=== PATIENT | male | born 1940 | race Caucasian/White ===

== ENCOUNTER 2020-10-22 11:11 | Observation (INO) | payer MEDICARE ==
[2020-10-22] MEDS ORDERED: KETOROLAC 15 MG/ML 1 ML VIAL IVP STA (11:39)
[2020-10-22] MEDS ORDERED: HYDROmorphone 0.5 MG/0.5 ML SYRINGE IVP STA ×2 (11:39→13:33)
--- NOTE | 2020-10-22 11:53 | ED ---
General Adult HPI - General Chief complaint: Extremity Problem,Nontraumatic Stated complaint: knee pain, trouble walking Time Seen by Provider: 10/22/20 11:15 Source: patient, RN notes reviewed, old records reviewed Mode of arrival: ambulatory Limitations: no limitations - History of Present Illness Initial comments: This is a 80-year-old male who presents emergency Department complaining of 3 week history of left knee pain. Patient states started 3 weeks. Progressively worse and yesterday the pain got unbearable to the point where it's difficult to even stand on. Patient states he has a torn meniscus in that knee. Patient denies any recent injury that he can remember. Patient states he has noticed a little more swelling suprapatellar area. Patient denies any ankle pain patient denies any hip pain patient denies any fever chills. Patient states movement definitely makes it worse. - Related Data Home Medications Medication Instructions Recorded Confirmed Acetaminophen [Tylenol] 500 mg PO Q4-6H PRN 10/22/20 10/22/20 Atorvastatin Calcium [Lipitor] 40 mg PO HS 10/22/20 10/22/20 Cholecalciferol [Vitamin D3 (25 50 mcg PO HS 10/22/20 10/22/20 Mcg = 1000 Iu)] Cyanocobalamin (Vitamin B-12) 1,000 mcg PO HS 10/22/20 10/22/20 [Vitamin B-12] Glucosam/Jabari-Msm1/C/Juan/Bosw 1 tab PO HS 10/22/20 10/22/20 [Glucosamine-Chondroitin Tablet] Metoprolol Succinate (ER) [Toprol 50 mg PO HS 10/22/20 10/22/20 XL] Nitroglycerin Sl Tabs [Nitrostat] 0.4 mg SUBLINGUAL Q5M PRN 10/22/20 10/22/20 ramipriL [Altace] 5 mg PO HS 10/22/20 10/22/20 sitaGLIPtin [Januvia] 100 mg PO HS 10/22/20 10/22/20 Allergies Allergy/AdvReac Type Severity Reaction Status Date / Time No Known Allergies Allergy Verified 10/22/20 13:07 Review of Systems ROS Statement: Those systems with pertinent positive or pertinent negative responses have been documented in the HPI. ROS Other: All systems not noted in ROS Statement are negative. Past Medical History Past Medical History: Diabetes Mellitus, Hyperlipidemia, Hypertension History of Any Multi-Drug Resistant Organisms: None Reported Past Surgical History: Cholecystectomy, Heart Catheterization With Stent, Orthopedic Surgery Past Psychological History: No Psychological Hx Reported Smoking Status: Never smoker Past Alcohol Use History: None Reported Past Drug Use History: None Reported General Exam - General Exam Comments Initial Comments: GENERAL Patient is well-developed and well-nourished. Patient is in mild distress. EYES Patient's pupils are equal and round. Extraocular motion is intact SKIN Unremarkable NEURO The patient is alert and oriented 3 PYSCH Patient has normal interpersonal interactions. MUSCULOSKELETAL Patient has a suprapatellar effusion and tenderness with flexion or full extension Limitations: no limitations Course Vital Signs 10/22/20 10/22/20 11:22 13:24 Temperature 98 F Pulse Rate 60 51 L Respiratory 16 18 Rate Blood Pressure 132/71 100/59 O2 Sat by Pulse 99 97 Oximetry Medical Decision Making - Medical Decision Making Left knee x-ray showed a moderate effusion. Patient was given pain meds mu ltiple times was unable to bear any weight. Patient was unable to place a knee immobilizer on because of the pain. I spoke with Dr. Purdy he agreed to admit the patient admitted the patient wrote admitting orders. - Lab Data Result diagrams: 10/22/20 12:17 10/22/20 12:17 Lab Results 10/22/20 10/22/20 Range/Units 12:17 12:17 WBC 6.8 (3.8-10.6) k/uL RBC 4.57 (4.30-5.90) m/uL Hgb 13.9 (13.0-17.5) gm/dL Hct 39.8 (39.0-53.0) % MCV 87.0 (80.0-100.0) fL MCH 30.3 (25.0-35.0) pg MCHC 34.9 (31.0-37.0) g/dL RDW 12.3 (11.5-15.5) % Plt Count 244 (150-450) k/uL MPV 7.1 Neutrophils % 70 % Lymphocytes % 21 % Monocytes % 5 % Eosinophils % 1 % Basophils % 1 % Neutrophils # 4.8 (1.3-7.7) k/uL Lymphocytes # 1.5 (1.0-4.8) k/uL Monocytes # 0.4 (0-1.0) k/uL Eosinophils # 0.1 (0-0.7) k/uL Basophils # 0.0 (0-0.2) k/uL Sodium 139 (137-145) mmol/L Potassium 4.4 (3.5-5.1) mmol/L Chloride 107 (98-107) mmol/L Carbon Dioxide 26 (22-30) mmol/L Anion Gap 6 mmol/L BUN 21 H (9-20) mg/dL Creatinine 1.33 H (0.66-1.25) mg/dL Est GFR (CKD-EPI)AfAm 59 (>60 ml/min/1.73 sqM) Est GFR (CKD-EPI)NonAf 51 (>60 ml/min/1.73 sqM) Glucose 187 H (74-99) mg/dL Calcium 10.0 (8.4-10.2) mg/dL Total Bilirubin 1.1 (0.2-1.3) mg/dL AST 20 (17-59) U/L ALT 17 (4-49) U/L Alkaline Phosphatase 77 (38-126) U/L C-Reactive Protein 0.7 (<1.0) mg/dL Total Protein 6.6 (6.3-8.2) g/dL Albumin 4.0 (3.5-5.0) g/dL Disposition Clinical Impression: Intractable pain, Pain, knee Disposition: ADMITTED IP TO THIS HOSP Referrals: Shantanu Marcelo DO [Primary Care Provider] - 1-2 days Time of Disposition: 14:09
[2020-10-22 12:28] LABS: Basophils % (A) 1 %; Eosinophils # (A) 0.1 k/uL (0-0.7); Eosinophils % (A) 1 %; HCT 39.8 % (39.0-53.0); HGB 13.9 gm/dL (13.0-17.5); Lymphocytes # (A) 1.5 k/uL (1.0-4.8); Lymphocytes % (A) 21 %; MCH 30.3 pg (25.0-35.0); MCHC 34.9 g/dL (31.0-37.0); Mean Platelet Volume 7.1; Monocytes # (A) 0.4 k/uL (0-1.0); Monocytes % (A) 5 %; Neutrophils # (A) 4.8 k/uL (1.3-7.7); Neutrophils % (A) 70 %; Platelet Count 244 k/uL (150-450); RBC 4.57 m/uL (4.30-5.90); RDW 12.3 % (11.5-15.5); WBC 6.8 k/uL (3.8-10.6)
--- NOTE | 2020-10-22 12:36 | XR ---
EXAMINATION TYPE: XR knee complete LT DATE OF EXAM: 10/22/2020 COMPARISON: NONE HISTORY: Left knee pain TECHNIQUE: 4 radiographs of the left knee FINDINGS: No acute fracture or dislocation. Mild OA medial and patellofemoral compartments. Moderate joint effusion with no significant soft tissue swelling. Loose body in the posterior knee joint versus fabella. Lateral meniscal calcifications. Periosteal reaction along the lateral aspect of the proximal tibia could be related to remote injury. Quadriceps enthesophytes. IMPRESSION: 1. Moderate size knee joint effusion. Mild OA medial and patellofemoral compartments. 2. No acute osseous abnormality. 3. Lateral meniscal calcifications.
[2020-10-22 12:42] LABS: C Reactive Protein 0.7 mg/dL (<1.0); Potassium 4.4 mmol/L (3.5-5.1); Total Bilirubin 1.1 mg/dL (0.2-1.3); Total Protein 6.6 g/dL (6.3-8.2)
[2020-10-22] MEDS ORDERED: HYDROmorphone 0.5 MG/0.5 ML SYRINGE IVP PRN (14:10)
[2020-10-22] MEDS: SODIUM CHLORIDE 0.9% 1,000 ML IV ONE ×2 (15:40→16:38)
[2020-10-22] MEDS ORDERED: NITROGLYCERIN SL TABS 0.4 MG TAB SUBLINGUAL PRN (17:04)
[2020-10-22] MEDS: KETOROLAC 15 MG/ML 1 ML VIAL IVP SCH (17:54)
[2020-10-22] MEDS ORDERED: ONDANSETRON 4 MG/2 ML VIAL IVP PRN (18:55)
[2020-10-22] MEDS ORDERED: NON FORMULARY DRUG (Glucosam/Chon-Msm1/C/Mang/Bosw [Glucosamine-Chondroitin Tablet] 1 EACH PO SCH (21:00)
[2020-10-22] MEDS: CYANOCOBALAMIN 500 MCG TAB PO SCH (21:48)
[2020-10-22] MEDS: lisinopriL 20 MG TAB PO SCH (21:48)
[2020-10-22] MEDS: LINAGLIPTIN 5 MG TABLET PO SCH (21:48)
[2020-10-22] MEDS: ATORVASTATIN 40 MG TAB PO SCH (21:48)
[2020-10-22] MEDS: METOPROLOL SUCCINATE (ER) 50 MG TAB.ER.24H PO SCH (21:48)
[2020-10-22] MEDS: CHOLECALCIFEROL 25 MCG (1000 IU) TABLET PO SCH (21:48)
[2020-10-23] MEDS: KETOROLAC 15 MG/ML 1 ML VIAL IVP SCH ×5 (00:08→23:33)
[2020-10-23] MEDS: HYDROcodone/APAP 5-325MG 1 EACH TAB PO PRN ×2 (09:05→20:04)
[2020-10-23] MEDS ORDERED: HYDROcodone/APAP 5-325MG 1 EACH TAB PO PRN (13:06)
--- NOTE | 2020-10-23 13:23 | P.HPOR ---
History of Present Illness H&P Date: 10/23/20 Chief Complaint: Left knee pain Patient is a pleasant 80-year-old male who presented to emergency room is yesterday with severe left knee pain and inability to ambulate. He says he has been having pain in his left knee over the past 3 weeks but over the past few days it has become so severe that he is unable ambulate or straighten his knee. He denies any specific trauma or incident. He denies any prior problems with his knee before the past month. He denies any fevers chills. He is not having pain in his ankle foot or toes. He denies any illness. He says that his knee was hurting particularly posteriorly and with weightbearing. He says he was having great difficulty trying to mobilize and had to have his neighbors carry him and decide is coming to the emergency room. He had evaluation and x-rays which showed no evidence of any fracture or dislocation. He does not have any elevated white count or fever. His CRP is negative. He is not having any swelling in his calf and thigh or foot. The x- ray report read as some mild joint effusion but there is no significant swelling at his knee. There is no erythema at his knee. He has no history of gout. Review of Systems He denies any shortness of breath. Denies any chest pain. Denies any significant swelling lower leg his pain is primarily when he tries to ambulate and bear weight. He said that yesterday he had a great difficulty with any sort of moving his knee at all but today's able to move it somewhat better. He says it feels like it was locked in a flexed position. Past Medical History Past Medical History: Diabetes Mellitus, Hyperlipidemia, Hypertension Additional Past Medical History / Comment(s): kidney stone History of Any Multi-Drug Resistant Organisms: None Reported Past Surgical History: Cholecystectomy, Heart Catheterization With Stent, Orthopedic Surgery Additional Past Surgical History / Comment(s): eye surgery at 20 Past Anesthesia/Blood Transfusion Reactions: No Reported Reaction Date of Last Stent Placement:: 09/2003 Past Psychological History: No Psychological Hx Reported Smoking Status: Former smoker Past Alcohol Use History: None Reported Past Drug Use History: None Reported - Past Family History Father Family Medical History: Cancer Medications and Allergies Home Medications Medication Instructions Recorded Confirmed Type Acetaminophen [Tylenol] 500 mg PO Q4-6H PRN 10/22/20 10/22/20 History Atorvastatin Calcium [Lipitor] 40 mg PO HS 10/22/20 10/22/20 History Cholecalciferol [Vitamin D3 (25 50 mcg PO HS 10/22/20 10/22/20 History Mcg = 1000 Iu)] Cyanocobalamin (Vitamin B-12) 1,000 mcg PO HS 10/22/20 10/22/20 History [Vitamin B-12] Glucosam/Jabari-Msm1/C/Juan/Bosw 1 tab PO HS 10/22/20 10/22/20 History [Glucosamine-Chondroitin Tablet] Metoprolol Succinate (ER) [Toprol 50 mg PO HS 10/22/20 10/22/20 History XL] Nitroglycerin Sl Tabs [Nitrostat] 0.4 mg SUBLINGUAL Q5M PRN 10/22/20 10/22/20 History ramipriL [Altace] 5 mg PO HS 10/22/20 10/22/20 History sitaGLIPtin [Januvia] 100 mg PO HS 10/22/20 10/22/20 History HYDROcodone/APAP 5-325MG [Gary 1 - 2 tab PO Q6HR PRN #56 tab 10/23/20 Rx 5-325] predniSONE 10 mg PO DIRECTED #24 tab 10/23/20 Rx Allergies Allergy/AdvReac Type Severity Reaction Status Date / Time No Known Allergies Allergy Verified 10/22/20 13:07 Physical Examination Osteopathic Statement: *. No significant issues noted on an osteopathic structural exam other than those noted in the History and Physical/Consult. - Knee right Appearance: normal (There is no erythema no effusion noted tension at his left knee.) Varus alignment in stance: normal (He has pain when he tries to stand on his knee but is able to put weight on it area he is able to do gentle range of motion with about a 10 extension lag and flexion to about 75) Valgus alignment in stance: normal (There is no instability with her son distress. He is nontender to palpation over the joint line. Nontender poste riorly. There is no significant effusion. There is no tension. No point tenderness) Tenderness with palpation: none (No specific tenderness over the patellar joint line or medial lateral condyles. There is some mild tenderness over his medial collateral ligament insertion. There is no erythema. Compartments are soft.) Gait: limping (He has difficulty with weightbearing but he is able put weight on his left leg) Results - Labs Labs: H & H 10/22/20 Range/Units 12:17 Hgb 13.9 (13.0-17.5) gm/dL Hct 39.8 (39.0-53.0) % Result Diagrams: 10/22/20 12:17 10/22/20 12:17 - Diagnostic results Knee x-ray: report reviewed, image reviewed (X-rays of his knee do not show any obvious fracture or dislocation. There is no bony erosion.) Assessment and Plan Assessment: Acute left knee pain of uncertain etiology Possible meniscal tear left knee with an intermittently locked meniscus No evidence of any infectious process Negative lab workup for any infectious process or inflammatory reaction No obvious instability No evidence of DVT Plan: Acute left knee pain of uncertain etiology Possible meniscal tear left knee with an intermittently locked meniscus No evidence of any infectious process Negative lab workup for any infectious process or inflammatory reaction No obvious instability No evidence of DVT Evaluation of his knee does not appear to be acutely surgical process. There is no erythema there is no significant effusion there is no evidence of sepsis. Do not see evidence of gouty attack. I do not see evidence of DVT. He may have a meniscal tear which has flipped into a position where his knee locked giving him significant pain. His pain is resolving. Today and he is able to bear some weight. I think that he will need some assistive device and a walker so that he can mobilize better and we'll have physical therapy work with him in order him a walker for home use. He should try to have the walker when he leaves the hospital. His pain is better controlled today and we'll try to transition him to oral medications. It is okay from a orthopedic standpoint for him to be discharged with oral med ications if he is stable with ambulation with a walker. He may weight-bear as tolerated on his left lower extremity. He has a knee immobilizer and he can use that for comfort on an as-needed basis. He may have some benefit with continued anti-inflammatories and we will give him a short course of steroid prednisone medication to take at home. I discussed with him the issues with his blood sugars given his history of type 2 diabetes and he understands. It is okay for him to mobilize as tolerated and weight-bear as tolerated. We will have physical therapy see him to try to help him with use for a walker for potential discharge home today. I can see him back early in the week after discharge and follow him closely he was likely need further imaging and possible MRI if he is not improving
[2020-10-23] MEDS: METOPROLOL SUCCINATE (ER) 50 MG TAB.ER.24H PO SCH (20:47)
[2020-10-23] MEDS: LINAGLIPTIN 5 MG TABLET PO SCH (20:47)
[2020-10-23] MEDS: CHOLECALCIFEROL 25 MCG (1000 IU) TABLET PO SCH (20:47)
[2020-10-23] MEDS: ATORVASTATIN 40 MG TAB PO SCH (20:47)
[2020-10-23] MEDS: lisinopriL 20 MG TAB PO SCH (20:47)
[2020-10-23] MEDS: CYANOCOBALAMIN 500 MCG TAB PO SCH (20:47)
[2020-10-24 05:18] VITALS: BP 121/72; PULSE 67; RESP 18; TEMP 98.5
[2020-10-24] MEDS: KETOROLAC 15 MG/ML 1 ML VIAL IVP SCH ×2 (05:20→11:51)
--- NOTE | 2020-10-24 12:09 | P.DS ---
Providers Date of admission: 10/22/20 14:17 Expected date of discharge: 10/24/20 Attending physician: Beverly Rosenbaum Primary care physician: Shantanu Marcelo - Discharge Diagnosis(es) (1) Osteoarthritis, knee Current Visit: Yes Status: Acute (2) Hypertension Current Visit: Yes Status: Acute (3) Hyperlipidemia Current Visit: Yes Status: Acute (4) Diabetes mellitus Current Visit: Yes Status: Acute (5) Obesity (BMI 30-39.9) Current Visit: Yes Status: Acute (6) Intractable pain Current Visit: Yes Status: Acute (7) Pain, knee Current Visit: Yes Status: Acute Hospital Course: This is a pleasant 80-year-old male who presented with left knee pain and inability to his left knee pain. He states his left knee pain has been ongoing over the past 3 weeks and had worsened without injury. Since his admission to the hospital he has had better control of his left knee pain. He does have difficulty with prolonged ambulation. He is able to ambulate small steps. He does feel he would be able to control his pain in the outpatient setting with medication. He also feels he can ambulate better with the assistance of a walker. Reviewing imaging did not show evidence of fracture dislocation in his left knee. He does have mild osteoarthritis at the medial and patellofemoral compartments. At this time, we'll plan for discharge home with a walker to roller helper in ambulation. Condition on day of discharge stable. Patient will be discharged home. Patient currently denies any nausea, vomiting, fever, or chills. Patient is eating and voiding freely without difficulty. MAPS has been reviewed today, 10/24/2020, with an Overall Overdose Risk Score of 000. An "Opiod Start Talking" Form has been signed and placed in the patient's chart. A prescription has been written for [place] 5 mg/325 mg 1-2 tabs every 6 hours as needed for pain, dispensed #56. He is also given a prescription for prednisone 10 mg taper. Take 3 tablets or 4 days, take 2 tablets for 4 days, take one tablet for 4 days. Patient should take this prescription until completion. He should avoid anti-inflammatory medications while on the prednisone taper. Patient's other medical diagnoses include diabetes mellitus, hyperlipidemia, and hypertension. Prescription has been written provided to case management for a walker. Patient is encouraged walker to aid in ambulation as needed. Patient will plan to follow up with Aubrey Alvarez PA-C or Dr. Lele Rosenbaum at [facility] coming 10/28/2020, following discharge. Patient states he does have a appointment set with another floor specialist this coming , 10/27/2020. If he keeps that appointment he is encouraged to call our office to cancel his scheduled follow- up appointment. Physical Exam on day of discharge: Patient is awake, alert, and oriented 3 Vital signs stable Good chest excursion with deep inspiration and expiration Abdomen soft nontender No signs or symptoms of DVT; no calf pain Some pain on palpation over the No significant palpation over the patella No significant pain with palpation over the medial lateral joint line Examination of the left knee does not show any significant swelling, erythema, or bruising some on the obvious signs of infection at the left knee Patient is able to stand at the bedside and ambulate some small steps He limps on the left lower extremity Some pain on palpation over the medial collateral ligament Patient Condition at Discharge: Stable Plan - Discharge Summary Discharge Rx Participant: No New Discharge Prescriptions: New HYDROcodone/APAP 5-325MG [[place] 5] 1 - 2 each PO Q6HR PRN #56 tab PRN Reason: Pain predniSONE See Taper PO DIRECTED #24 tab No Action Glucosam/Jabari-Msm1/C/Juan/Bosw [Glucosamine-Chondroitin Tablet] 1 tab PO HS Acetaminophen [Tylenol] 500 mg PO Q4-6H PRN PRN Reason: Pain sitaGLIPtin [Januvia] 100 mg PO HS ramipriL [Altace] 5 mg PO HS Nitroglycerin Sl Tabs [Nitrostat] 0.4 mg SUBLINGUAL Q5M PRN PRN Reason: Chest Pain Metoprolol Succinate (ER) [Toprol XL] 50 mg PO HS Cyanocobalamin (Vitamin B-12) [Vitamin B-12] 1,000 mcg PO HS Cholecalciferol [Vitamin D3 (25 Mcg = 1000 Iu)] 50 mcg PO HS Atorvastatin Calcium [Lipitor] 40 mg PO HS Discharge Medication List Acetaminophen [Tylenol] 500 mg PO Q4-6H PRN 10/22/20 [History] Atorvastatin Calcium [Lipitor] 40 mg PO HS 10/22/20 [History] Cholecalciferol [Vitamin D3 (25 Mcg = 1000 Iu)] 50 mcg PO HS 10/22/20 [History] Cyanocobalamin (Vitamin B-12) [Vitamin B-12] 1,000 mcg PO HS 10/22/20 [History] Glucosam/Jabari-Msm1/C/Juan/Bosw [Glucosamine-Chondroitin Tablet] 1 tab PO HS 10/22/20 [History] Metoprolol Succinate (ER) [Toprol XL] 50 mg PO HS 10/22/20 [History] Nitroglycerin Sl Tabs [Nitrostat] 0.4 mg SUBLINGUAL Q5M PRN 10/22/20 [History] ramipriL [Altace] 5 mg PO HS 10/22/20 [History] sitaGLIPtin [Januvia] 100 mg PO HS 10/22/20 [History] HYDROcodone/APAP 5-325MG [[place] 5] 1 - 2 each PO Q6HR PRN #56 tab 10/24/20 [Rx] predniSONE See Taper PO DIRECTED #24 tab 10/24/20 [Rx] Follow up Appointment(s)/Referral(s): Shantanu Marcelo DO [Primary Care Provider] - 1-2 days Beverly Rosenbaum DO [Doctor of Osteopathic Medicine] - 10/28/20 (Patient may follow-up with Aubrey Alvarez PA-C or Dr. Lele Rosenbaum at [facility] on 10/28/2020 following discharge. ) Patient Instructions/Handouts: Hydrocodone/Acetaminophen (By mouth), Prednisone (By mouth), Knee Pain (GEN) Activity/Diet/Wound Care/Special Instructions: Weight-bear as tolerated on left lower extremity Left knee immobilizer brace for comfort May ambulate as tolerated Discharge Disposition: HOME SELF-CARE
== END 2020-10-24 15:48 | disposition home or self-care (01) ==
LOC: EC 11:11 → 5NMEDONC 14:17
PROVIDERS: ADMIT Orthopaedic Surgery Orthopaedic Surgery of the Spine; ATTEND Orthopaedic Surgery Orthopaedic Surgery of the Spine
DX: M17.12 Unilateral primary osteoarthritis, left knee (principal); I10 Essential (primary) hypertension; E78.5 Hyperlipidemia, unspecified; E11.9 Type 2 diabetes mellitus without complications; E66.9 Obesity, unspecified; Z68.30 Body mass index [BMI] 30.0-30.9, adult; Z79.84 Long term (current) use of oral hypoglycemic drugs; Z79.899 Other long term (current) drug therapy; Z90.49 Acquired absence of other specified parts of digestive tract; Z87.891 Personal history of nicotine dependence; Z87.442 Personal history of urinary calculi; Z80.9 Family history of malignant neoplasm, unspecified
CPT/HCPCS: 96376 ×4; 96361; 96375; 96374; 99284; 36415; 97161; 80053; 85025; 86140; 73562; G0378 ×3; L1830; J2405; J1885 ×3; J1170

== ENCOUNTER 2023-01-29 16:24 | Emergency (ER) | payer MEDICARE ==
[2023-01-29 17:00] VITALS: BP 116/67; PULSE 63; RESP 18; TEMP 98
[2023-01-29] MEDS ORDERED: DIPH,PERTUS(ACELL)TETVAC-LF 0.5 ML VIAL IM ONE (17:23)
[2023-01-29] MEDS ORDERED: LIDOCAINE 1% INJ 10MG/ML (20 ML MDV) SQ ONE (17:23)
--- NOTE | 2023-01-29 17:55 | ED ---
Fall HPI - General Source: patient, RN notes reviewed Mode of arrival: wheelchair Limitations: no limitations <Lance Campbell - Last Filed: 01/29/23 17:50> <Marci Aguilar - Last Filed: 01/29/23 20:13> - General Chief Complaint: Fall Stated Complaint: head injury Time Seen by Provider: 01/29/23 17:50 - History of Present Illness Initial Comments: 82 year old male presents emergency Department chief complaint of fall. Patient had a fall striking his head. He is unsure when his last tetanus was. He states he is on aspirin denies any blood thinners. Patient has a laceration to his forehead. (Lance Campbell) 82-year-old male presents emergency Department with chief complaint of fall. Patient states that he was walking when he tripped on a curb causing him to fall forward and hit his face on a pipe. He did not lose consciousness. Denies significant headache. He denies any blood thinner use, admits to aspirin. He is unsure of the date of his last tetanus vaccination. He has a laceration to his left-sided forehead and his scalp. Denies any other injury. (Marci Aguilar) - Related Data Home Medications Medication Instructions Recorded Confirmed Acetaminophen [Tylenol] 500 mg PO Q4-6H PRN 10/22/20 10/22/20 Atorvastatin Calcium [Lipitor] 40 mg PO HS 10/22/20 10/22/20 Cholecalciferol [Vitamin D3 (25 50 mcg PO HS 10/22/20 10/22/20 Mcg = 1000 Iu)] Cyanocobalamin (Vitamin B-12) 1,000 mcg PO HS 10/22/20 10/22/20 [Vitamin B-12] Glucosam/Jabari-Msm1/C/Juan/Bosw 1 tab PO HS 10/22/20 10/22/20 [Glucosamine-Chondroitin Tablet] Metoprolol Succinate (ER) [Toprol 50 mg PO HS 10/22/20 10/22/20 XL] Nitroglycerin Sl Tabs [Nitrostat] 0.4 mg SUBLINGUAL Q5M PRN 10/22/20 10/22/20 ramipriL [Altace] 5 mg PO HS 10/22/20 10/22/20 sitaGLIPtin [Januvia] 100 mg PO HS 10/22/20 10/22/20 Previous Rx's Medication Instructions Recorded HYDROcodone/APAP 5-325MG [Pritchett 5] 1 - 2 each PO Q6HR PRN #56 tab 10/24/20 predniSONE See Taper PO DIRECTED #24 tab 10/24/20 Allergies Allergy/AdvReac Type Severity Reaction Status Date / Time No Known Allergies Allergy Verified 01/29/23 16:55 Review of Systems ROS Other: All systems not noted in ROS Statement are negative. <Lance Campbell - Last Filed: 01/29/23 17:50> ROS Other: All systems not noted in ROS Statement are negative. <Marci Aguilar - Last Filed: 01/29/23 20:13> ROS Statement: Those systems with pertinent positive or pertinent negative responses have been documented in the HPI. Past Medical History Past Medical History: Diabetes Mellitus, Hyperlipidemia, Hypertension Additional Past Medical History / Comment(s): kidney stone History of Any Multi-Drug Resistant Organisms: None Reported Past Surgical History: Cholecystectomy, Heart Catheterization With Stent, Orthopedic Surgery Additional Past Surgical History / Comment(s): eye surgery at 20 Past Anesthesia/Blood Transfusion Reactions: No Reported Reaction Date of Last Stent Placement:: 09/2003 Past Psychological History: No Psychological Hx Reported Smoking Status: Former smoker Past Alcohol Use History: None Reported Past Drug Use History: None Reported - Past Family History Father Family Medical History: Cancer <Lance Campbell - Last Filed: 01/29/23 17:50> General Exam Limitations: no limitations, physical limitation <Lance Campbell - Last Filed: 01/29/23 17:50> General appearance: alert, in no apparent distress Head exam: Present: normocephalic, other (Laceration to scalp about 1 cm with hematoma, laceration to above left eyebrow) Eye exam: Present: normal appearance, PERRL, EOMI. Absent: scleral icterus, conjunctival injection, periorbital swelling ENT exam: Present: normal exam, mucous membranes moist Neck exam: Present: normal inspection. Absent: tenderness, meningismus, lymphadenopathy Respiratory exam: Present: normal lung sounds bilaterally. Absent: respiratory distress, wheezes, rales, rhonchi, stridor Cardiovascular Exam: Present: regular rate, normal rhythm, normal heart sounds. Absent: systolic murmur, diastolic murmur, rubs, gallop, clicks Extremities exam: Present: normal inspection, full ROM, normal capillary refill. Absent: tenderness, pedal edema, joint swelling, calf tenderness Back exam: Present: normal inspection Neurological exam: Present: alert, oriented X3, CN II-XII intact Psychiatric exam: Present: normal affect, normal mood Skin exam: Present: warm, dry, normal color, other (3cm Laceration above left eyebrow, was a laceration to scalp) <Marci Aguilar - Last Filed: 01/29/23 20:13> - General Exam Comments Initial Comments: Visual Physical Exam Vital signs reviewed General: Well-appearing, nontoxic, no acute distress. Head: Normocephalic, atraumatic Eyes: PERRLA, EOMI ENT: Airway patent Chest: Nonlabored breathing Skin: No visual rash, normal skin tone Neuro: Alert and oriented 3 Musculoskeletal: No gross abnormalities (Lance Campbell) Course Vital Signs 01/29/23 16:50 Temperature 98.0 F Pulse Rate 63 Respiratory 18 Rate Blood Pressure 116/67 O2 Sat by Pulse 97 Oximetry Procedures - Laceration Laceration #1 Consent Obtained: verbal consent Indication: laceration Site: scalp Size (cm): 1 Description: linear Depth: simple, single layer Anesthetic Used: lidocaine 1% Anesthesia Technique: local infiltration Pre-repair: wound explored Type of Sutures: other Size of Sutures: 5-0 Number of Sutures: 3 Technique: simple, interrupted Patient Tolerated Procedure: well, no complications Laceration #2 Consent Obtained: verbal consent Indication: laceration Site: face Size (cm): 3 Description: linear Depth: simple, single layer Anesthetic Used: lidocaine 1% Anesthesia Technique: local infiltration Pre-repair: wound explored, irrigated extensively Size of Sutures: 6-0 Number of Sutures: 8 Technique: simple, interrupted Patient Tolerated Procedure: well, no complications <Marci Aguilar - Last Filed: 01/29/23 20:13> Medical Decision Making <Lance Campbell - Last Filed: 01/29/23 17:50> <Marci Aguilar - Last Filed: 01/29/23 20:13> - Medical Decision Making I completed the quick note portion of this chart Signed Lance Campbell PA-C (Lance Campbell) Was pt. sent in by a medical professional or institution (FREYA Mercado, NEUROSURGERY PHYSICIAN, urgent care, hospital, or shelter...) When possible be specific @ -No Did you speak to anyone other than the patient for history (EMS, parent, family, police, friend...)? What history was obtained from this source @ -No Did you review nursing and triage notes (agree or disagree)? Why? @ -I reviewed and agree with nursing and triage notes Were old charts reviewed (outside hosp., previous admission, EMS record, old EKG, old radiological studies, urgent care reports/EKG's, shelter records)? Report findings @ -No old charts were reviewed Differential Diagnosis (chest pain, altered mental status, abdominal pain women, abdominal pain men, vaginal bleeding, weakness, fever, dyspnea, syncope, headache, dizziness, GI bleed, back pain, seizure, CVA, palpatations, mental health, musculoskeletal)? @ -Laceration, head injury, fall, fracture, intracranial hemorrhage, this list is not all-inclusive EKG interpreted by me (3pts min.). @ -[None X-rays interpreted by me (1pt min.). @ -None done CT interpreted by me (1pt min.). @ -CT brain and C-spine shows no evidence for acute intracranial process, no evidence for acute fracture U/S interpreted by me (1pt. min.). @ -None done What testing was considered but not performed or refused? (CT, X-rays, U/S, labs)? Why? @ -None What meds were considered but not given or refused? Why? @ -None Did you discuss the management of the patient with other professionals (professionals i.e. FREYA Mercado, NEUROSURGERY PHYSICIAN, lab, RT, psych nurse, social welfare administrator, dog food dough mixer, teacher, event security officer, special education case manager)? Give summary @ -No Was smoking cessation discussed for >3mins.? @ -No Was critical care preformed (if so, how long)? @ -No Were there social determinants of health that impacted care today? How? (Homelessness, low income, unemployed, alcoholism, drug addiction, transport ation, low edu. Level, literacy, decrease access to med. care, senior living, rehab)? @ -No Was there de-escalation of care discussed even if they declined (Discuss DNR or withdrawal of care, Hospice)? DNR status @ -No What co-morbidities impacted this encounter? (DM, HTN, Smoking, COPD, CAD, Cancer, CVA, ARF, Chemo, Hep., AIDS, mental health diagnosis, sleep apnea, morbid obesity)? @ -None Was patient admitted / discharged? Hospital course, mention meds given and route, prescriptions, significant lab abnormalities, going to OR and other pertinent info. @ -Discharged. Patient presented to emergency department chief complaint of fall and head injury. Patient states that he is walking when he tripped on a curb and hit his head on a pipe. He did not lose consciousness not on any blood thinners, denies significant headache. Denies any other injuries. Lacerations were repaired. CT brain and C-spine obtained which shows no evidence for acute intracranial process, no evidence for acute fracture. Patient advised on suture care and removal time, should return precautions discussed. Patient stable at time of discharge. Case discussed with Dr. Thorne Undiagnosed new problem with uncertain prognosis? @ -No Drug Therapy requiring intensive monitoring for toxicity (Heparin, Nitro, Insulin, Cardizem)? @ -No Were any procedures done? @ -Laceration repair see procedure note Diagnosis/symptom? @ -Laceration, head injury Acute, or Chronic, or Acute on Chronic? @ -Acute Uncomplicated (without systemic symptoms) or Complicated (systemic symptoms)? @ - Uncomplicated Side effects of treatment? @ -No Exacerbation, Progression, or Severe Exacerbation? @ -No Poses a threat to life or bodily function? How? (Chest pain, [place], [place], pneumonia, PE, COPD, DKA, ARF, appy, cholecystitis, CVA, Diverticulitis, Homicidal, Suicidal, threat to staff... and all critical care pts) @ -No (Marci Aguilar) Disposition <Lance Campbell - Last Filed: 01/29/23 17:50> Is patient prescribed a controlled substance at d/c from ED?: No <Marci Aguilar - Last Filed: 01/29/23 20:13> Clinical Impression: Fall, Laceration Disposition: HOME SELF-CARE Condition: Stable Instructions (If sedation given, give patient instructions): Care For Your Stitches (ED), Fall Prevention for Older Adults (ED) Additional Instructions: Please follow up for suture removal in around 5 days. Follow up with your primary care provider. Return to the emergency department for new or worsening symptoms. Referrals: Shantanu Marcelo DO [Primary Care Provider] - 1-2 days
--- NOTE | 2023-01-29 19:30 | CT ---
EXAMINATION TYPE: CT brain devyn wo con DATE OF EXAM: 01/29/2023 COMPARISON: None HISTORY: pain after fall. CT DLP: 1498.8 mGycm, Automated exposure control for dose reduction was used. CONTRAST: None CT of the brain is performed utilizing 3 mm thick sections through the posterior fossa and 3 mm thick sections through the remaining calvarium. Study is performed within 24 hours of arrival to the hospital. No abnormal hyperdensity is present to suggest an acute intracranial hemorrhage. No mass lesion is evident. No acute infarcts are evident. Ventricles and sulci are prominent for the patient age. There is soft tissue swelling the left frontal region. Paranasal sinuses and mastoid air cells within the [id number] are clear. IMPRESSIONS: 1. Atrophy. 2. No acute intracranial process. Follow-up MRI can be performed as clinically indicated. 3. Soft tissue swelling left frontal region CT cervical spine. COMPARISON: None CT of the cervical spine is performed in the axial plane at 2 mm thick sections. Reconstructed image s in the coronal, and sagittal plane are reviewed on the computer. No acute fractures are evident. Vertebral body alignment is normal. There is some disc space narrowing within the mid to lower cervical spine. Posterior vertebral body s purring is noted superior endplate C5 inferior endplate C6-7. No AP spinal canal stenosis present Vertebral body heights are preserved. No spinal canal stenosis is evident. Uncovertebral joint hypertrophy on the left is causing moderate foraminal narrowing C2-C3. Severe for aminal stenosis is present on the right at C3-4 and on the left at C4-5 mild foraminal narrowing is p resent throughout the remaining cervical spine. IMPRESSION: 1. Degenerative disc changes and uncovertebral joint hypertrophy discussed above. 2. No acute osseous abnormality
== END 2023-01-29 20:23 | disposition home or self-care (01) ==
LOC: EC 16:24
DX: S01.01XA Laceration without foreign body of scalp, initial encounter (principal); S01.112A Laceration without foreign body of left eyelid and periocular area, initial encounter; E11.9 Type 2 diabetes mellitus without complications; E78.5 Hyperlipidemia, unspecified; I10 Essential (primary) hypertension; Z87.891 Personal history of nicotine dependence; Z79.899 Other long term (current) drug therapy; Z79.84 Long term (current) use of oral hypoglycemic drugs; Z23 Encounter for immunization; W18.00XA Striking against unspecified object with subsequent fall, initial encounter
CPT/HCPCS: 12001; 90471; 99284; 72125; 70450; 90715; 12013; J2001